=== PATIENT | female | born 1970 | race Caucasian/White ===

== ENCOUNTER 2021-09-23 08:14 | Day surgery (SDC) | payer OTHER ==
[~2021-09-23] VITALS: Ht 172.7 cm; Wt 97.5 kg
[~2021-09-23 08:14] MED LIST: ALBU90OI; MOME220I INH; ZYRTEC10 M2 PO
--- NOTE | 2021-09-23 09:15 | NUR ---
09/23/21 0915 Prabha Torres PATIENT SIGNED REFUSAL FOR HCG. STATES THERE IS NO CHANCE SHE COULD BE
== END 2021-09-23 10:24 | disposition home or self-care (01) ==
LOC: ORSCSDS 08:14
PROVIDERS: Student in an Organized Health Care Education/Training Program
PROC: 0DBL8ZX Excision of Transverse Colon, Via Natural or Artificial Opening Endoscopic, Diagnostic (ICD-10-PCS; principal; 2021-09-23 09:45)
DX: Z12.11 Encounter for screening for malignant neoplasm of colon (principal); D12.3 Benign neoplasm of transverse colon; K57.30 Diverticulosis of large intestine without perforation or abscess without bleeding; K64.8 Other hemorrhoids; F17.210 Nicotine dependence, cigarettes, uncomplicated; J45.909 Unspecified asthma, uncomplicated; Z79.899 Other long term (current) drug therapy
CPT/HCPCS: 88305; J2704; J7120

== ENCOUNTER 2022-02-08 11:42 | Emergency (ER) | payer OTHER ==
[~2022-02-08] VITALS: Ht 172.7 cm; Wt 99.8 kg
== END 2022-02-08 12:42 | disposition home or self-care (01) ==
LOC: ER 11:42
DX: J06.9 Acute upper respiratory infection, unspecified (principal); Z20.822 Contact with and (suspected) exposure to COVID-19; Z87.891 Personal history of nicotine dependence
CPT/HCPCS: 71046; 99283-25

== ENCOUNTER 2023-01-22 14:42 | Inpatient (IN) | payer OTHER ==
[~2023-01-22] VITALS: Ht 170.2 cm; Wt 114.4 kg
--- NOTE | 2023-01-22 17:37 | NUR ---
PT ARRIVED TO [facility] AT APROX 1500. PT ALERT AND ORIENTED X 4, C/O SHARP ULQ ABD PAIN. SEE DOCUMENTED VS AND ASSESSMENT. PT TO SURGERY AT 1721.
--- NOTE | 2023-01-22 18:15 | NUR ---
01/22/23 181 Rosa Vazquez HCG TEST DONE AND NEGATIVE PER DR. LORA
--- NOTE | 2023-01-22 22:45 | NUR ---
*LATE ENTRY* PT ARRIVED FROM PACU ROUGHLY 2019 TO PCU 7 FOR EX LAP. SLIDE TRANSFER TO BED. PT LETHARGIC & DROWSY, WAS MEDICATED FOR PAIN IN PACU. MIDLINE ABD LESA DRESSING & THAI DRAIN INTACT. WILL MONITOR.
--- NOTE | 2023-01-22 22:47 | NUR ---
CRITICAL VALUE *LATE ENTRY* ROUGHLY 2114 LA @4.8 POST OP, INCREASED FROM 2.[address] EAR[address] INFORMED [address] HILL & HE INCREASED LR TO 200ML/HR & ADDED BOLUS. VSS. WILL MONITOR
[2023-01-23 04:02] LABS: Hematocrit 42.7 % (33.0-51.0); Hemoglobin 14.7 g/dL (11.5-16.0); Mean Corpuscular HGB 31.6 pg (26.0-34.0); Mean Corpuscular HGB Conc 34.4 g/dL (31.5-36.5); Mean Corpuscular Volume 92 fL (80-100); Mean Platelet Volume 10.7 fL (9.1-12.4); Platelet Count 184 K/mm3 (150-400); RDW Coefficient Variation 12.9 % (11.7-14.2); RDW Standard Deviation 43.4 fL (35.1-46.3); Red Blood Cell Count 4.65 M/mm3 (3.80-5.20); White Blood Cell Count 19.26 K/mm3 (4.00-11.30)
[2023-01-23 04:45] LABS: Albumin/Globulin Ratio 0.9 (0.8-1.8); Bilirubin, Total 2.3 mg/dL (0.1-1.0); Bun/Creatinine Ratio 24.8 (12.0-20.0); Calcium, Blood 8.9 mg/dL (8.5-10.1); Creatinine, Blood 0.61 mg/dL (0.40-1.00); Globulin, Blood 3.4 g/dL (2.2-4.0); Potassium, Blood 4.5 mmol/L (3.5-5.5); Total Protein, Blood 6.4 g/dL (6.4-8.2)
--- NOTE | 2023-01-23 04:53 | NUR ---
SHIFT SUMMARY AOX4, ONCE SEDATION FROM SURGERY WORN OFF. POD 1- EX ABD LAP. MIDLINE LESA DRESSING C/D/I. THAI DRAIN c 50ML BRIGHT RED DRAINAGE. NGT SET TO LIS, SCANT AMOUNT DRAINAGE IN TUBE, NONE IN CANISTER. NPO. PT REPORTED 9/10 ABD PAIN 1X AFTER TURNING & CHANGING, MEDICATED c 1MG DILAUDID & PAIN LEVEL DECREASED TO 5/10. ABD BINDER IN PLACE. PT HAD SM SOFT BROWN INCONT BM. PT VOIDED IN BEDPAN. VSS. CALL LIGHT IN REACH.
[2023-01-23 04:57] LABS: BAND PERCENT MAN 22 % (0-8); BASOPHILS PERCENT MAN 0 % (0-2); EOSINOPHILS PERCENT MAN 0 % (0-6); LYMPHOCYTES ABSOLUTE MAN 0.57 K/mm3 (0.84-5.20); LYMPHOCYTES PERCENT MAN 3 % (21-46); MONOCYTES ABSOLUTE MAN 0.57 K/mm3 (0.16-1.47); MONOCYTES PERCENT MAN 3 % (4-13); SEG NEUTROPHILS PERCENT MAN 72 % (41-73); TOTAL CELLS COUNTED 100
--- NOTE | 2023-01-23 09:56 | NUR ---
TRANSFER SUMMARY PATIENT ALERT AND ORIENTED. RESTING IN BED. REPORTED ABD PAIN AND NAUSEA. ONE EPISODE OF VOMITING WITH 10 ML EMESIS. MIDLINE LESA DRESSING TO ABD WITH SCANT SHADOWING AT TOP. THAI DRAIN WITH MODERATE SS OUTPUT. ABD BINDER IN PLACE. NG TUBE TO LIS WITH NO OUTPUT IN CANISTER. ABD SOFT AND TENDER. PATIENT REPORTS PASSING GAS AND 1 BM LAST NIGHT. PROTONIX DRIP RUNNING AND LR AT 200/HR. VSS. REPORT GIVEN TO METAL ROASTER SHILO HERNÁNDEZ. PATIENT TRANSPORTED FROM UNIT AT 0950 IN WHEELCHAIR TO ROOM 227.
--- NOTE | 2023-01-23 10:03 | NUR ---
TRANSFER TO SURGICAL UNIT ARRIVES VIA WC & EASY SBA TO TRANSFER TO BED. NGT TO LIS. SCANT BROWN DRNG. THAI w/ SS FLUID. LESA MIDLINE w/ NO DRNG. ABD BINDER. STATES NAUSEA COMES & GOES, BUT IS NOT CONSTANT. IVF, PROTONIX, & ABX WILL BE RESTARTED.
--- NOTE | 2023-01-23 19:24 | NUR ---
SHIFT SUMMARY PT HAS DONE WELL SINCE TX TO SURGICAL UNIT. UP TO BSC TO VOID, VERY DARK URINE. THAI & NGT w/ MIN OUTPUT. REPORTS NAUSEA HAS RESOLVED. DECLINES PAIN MEDS THIS AFTERNOON; STATES PAIN IS TOLERABLE.
--- NOTE | 2023-01-24 07:37 | NUR ---
SHIFT SUMMARY AOX4. POD 2-EX LAP c CAROL PATCH. ABD MOD DISTENDED. REPORTS ABD PAIN 5/10 & DENIES ANY PAIN MEDS, STATES PAIN LEVEL TOLERABLE. PT DID GET NAUSEATED WHEN UP TO BSC & STARTED DRY HEAVING/GAGGING, MEDICATED 1x c REGLAN & NO FURTHER NAUSEA REPORTED. MIDLINE LESA DRESSING C/D/I. THAI DRAIN 30ML BRIGHT RED DRAINAGE. NGT TO LIS c 250ML BROWN DRAINAGE IN CANISTER. SBY ASSIST TO BSC. CALL LIGHT IN REACH.
--- NOTE | 2023-01-24 18:24 | NUR ---
SHIFT SUMMARY PT HAS DONE WONDERFUL TODAY. WAS UP TO CHAIR, HAD NGT REMOVED, TOLERATING ICE CHIPS & SIPS OF CLEARS w/ NO N/V. STATES PAIN IS MIMINAL. GRADUATED FROM BSC TO AMBULATING TO BATHROOM. FEELS MUCH IMPROVED.
--- NOTE | 2023-01-25 05:24 | NUR ---
LEGAL EDITOR SUMMARY PT TOLERATING SMALL AMOUNTS OF CLEAR LIQUIDS. DENIES NAUSEA THROUGH THE NIGHT. PT DID START COMPLAINING OF ABD PAIN AT START OF SHIFT, RECIEVED ORDER FROM DR HILL FOR IV DILAUDID, PAIN VERY WELL MANAGED WITH 1MG. 30 ML OF PINK OUTPUT TO THAI DRAIN. NO CHANGES TO MIDLINE LESA. VSS, WILL CONTINUE TO MONITOR.
[2023-01-25 05:42] LABS: BASOPHILS ABSOLUTE AUTO 0.03 K/mm3 (0.00-0.23); BASOPHILS PERCENT AUTO 0 % (0-2); EOSINOPHILS ABSOLUTE AUTO 0.13 K/mm3 (0.00-0.68); EOSINOPHILS PERCENT AUTO 1 % (0-6); Hematocrit 38.1 % (33.0-51.0); Hemoglobin 12.5 g/dL (11.5-16.0); IMMATURE GRAN ABSOLUTE AUTO 0.05 K/mm3 (0.00-0.10); IMMATURE GRAN PERCENT AUTO 1 % (0-1); LYMPHOCYTES ABSOLUTE AUTO 1.87 K/mm3 (0.84-5.20); LYMPHOCYTES PERCENT AUTO 20 % (21-46); MONOCYTES ABSOLUTE AUTO 0.51 K/mm3 (0.16-1.47); MONOCYTES PERCENT AUTO 6 % (4-13); Mean Corpuscular HGB 31.4 pg (26.0-34.0); Mean Corpuscular HGB Conc 32.8 g/dL (31.5-36.5); Mean Corpuscular Volume 96 fL (80-100); NEUTROPHILS ABSOLUTE AUTO 6.73 K/mm3 (1.96-9.15); NEUTROPHILS PERCENT AUTO 72 % (41-73); Platelet Count 174 K/mm3 (150-400); RDW Coefficient Variation 13.2 % (11.7-14.2); RDW Standard Deviation 46.5 fL (35.1-46.3); Red Blood Cell Count 3.98 M/mm3 (3.80-5.20); White Blood Cell Count 9.32 K/mm3 (4.00-11.30)
[2023-01-25 06:00] LABS: Albumin, Blood 2.5 g/dL (3.4-5.0); Albumin/Globulin Ratio 0.7 (0.8-1.8); Bilirubin, Total 1.2 mg/dL (0.1-1.0); Bun/Creatinine Ratio 19.2 (12.0-20.0); Calcium, Blood 8.6 mg/dL (8.5-10.1); Creatinine, Blood 0.68 mg/dL (0.40-1.00); Globulin, Blood 3.8 g/dL (2.2-4.0); Potassium, Blood 3.7 mmol/L (3.5-5.5); Total Protein, Blood 6.3 g/dL (6.4-8.2)
--- NOTE | 2023-01-25 11:18 | NUR ---
Pt. is awake and welcomes my visit as she is sittng up in a recliner. Pts. mother is present. Pt. is pleasant, but displays evidence of discomfort. Facilitated a life review, and established rapport. Nurses came in to administer meds, and Pt. was also visited my [facility] the [facility] therapy dog. Prayed with Pt. Pt. and mother verbalized gratitude for the spiritual care visit.
--- NOTE | 2023-01-25 14:00 | NUR ---
SOB/SLIGHT WHEEZE REPORTS SLIGHT SOB & SLIGH WHEEZE AFTER LAST AMBULATION. REQUESTS HOME INHALER BE ORDERED. WILL SPEAK w/
--- NOTE | 2023-01-25 15:02 | NUR ---
PARTIAL SHIFT SUMMARY PT HAS DONE GREAT TODAY, ALTHOUGH NOT PASSING GAS YET & C/O GAS PAINS. AMBULATING IN HALLWAYS & UP TO CHAIR. C/O SLIGHT WHEEZE; SEE NOTE.
--- NOTE | 2023-01-25 16:33 | NUR ---
ASSUMED CARE OF PT AT APROX 1530. PT LYING IN BED, A/O X'S 4. DENIES PAIN AT THIS TIME, STATES SHE IS JUST SLEEPY. PT PASSING FLATUS, WILL ADVANCE DIET PER MD ORDER.
--- NOTE | 2023-01-26 05:02 | NUR ---
FIELD CONTACT PERSON SUMMARY PT AAOX4 AND PLEASANT. TOLERATING A REGULAR DIET FOR DINNER AND SOME SNACKS TONIGHT. MEDICATED FOR PAIN X1 WITH IV DILAUDID BEFORE START OF SHIFT, MEDICATED X1 WITH ROXICODONE 10 MG LATER THIS MORNING. MINIMAL OUTPUT TO THAI DRAIN. VSS, WILL CONTINUE TO MONITOR.
[2023-01-26] MEDS ORDERED: OMEP20ER PO (13:10)
[2023-01-26] MEDS ORDERED: OXYC10TA19 PO (13:10)
--- NOTE | 2023-01-26 20:38 | NUR ---
DISCHARGE SUMMARY S/P CAROL PATCH, A/OX4, VSS, TOLERATING PO, VOIDING WELL. IV ACCESS REMOVED PRIOR TO DISCHARGE, NO IV DEVICES IN PLACE AT TIME OF DEPARTURE. DISCUSSED DISCHARGE INFORMATION WITH THE PATIENT INCLUDING HOME CARE, S/SX TO LOOK OUT FOR, EDUCATION REGARDING HER PROCEDURE, MEDICATION CHANGES, AND FOLLOW UP APPOINTMENTS. ANSWERED ALL QUESTIONS TO PATIENTS SATISFACTION. THAI DRAIN REMOVED BY SURGEON JUST PRIOR TO DC, PROVIDED PT WITH AN EXTRA DRESSING WITH INSTRUCTIONS TO REPLACE IF IT GETS SOILED OR REINFORCE IF NEEDED. PT ESCORTED OUT VIA WC TO PRIVATE AUTO TO GO HOME.
== END 2023-01-26 13:45 | disposition home or self-care (01) | DRG 328 ==
LOC: ER 14:42 → SURS 15:50 → PCU 15:50 → SURS 15:50 → PCU 16:02 → SURS 19:01 → PCU 21:54 → SURS 01-23 09:57
PROVIDERS: ADMIT Surgery
PROC: 0DU707Z Supplement Stomach, Pylorus with Autologous Tissue Substitute, Open Approach (ICD-10-PCS; 2023-01-22)
PROC: 0DQ60ZZ Repair Stomach, Open Approach (ICD-10-PCS; principal; 2023-01-22 17:30)
DX: K25.5 Chronic or unspecified gastric ulcer with perforation (principal); K66.8 Other specified disorders of peritoneum; J45.909 Unspecified asthma, uncomplicated; Z79.51 Long term (current) use of inhaled steroids; Z87.891 Personal history of nicotine dependence; Z98.890 Other specified postprocedural states
CPT/HCPCS: 36415; 80053; 83605; 85025; 87040; 93005; 93010; 94760; 96374; 96374-59; 96375; 99285-25; A9270; C9113; G0378; J0295; J0330; J1100; J1170; J1650; J2270; J2405; J2543; J2704; J2765; J2795; J3010; J7120

== ENCOUNTER → 2023-01-22 | Outpatient (CLI) | payer OTHER ==
[2023-01-22 11:58] LABS: BASOPHILS ABSOLUTE AUTO 0.03 K/mm3 (0.00-0.23); BASOPHILS PERCENT AUTO 0 % (0-2); EOSINOPHILS ABSOLUTE AUTO 0.02 K/mm3 (0.00-0.68); EOSINOPHILS PERCENT AUTO 0 % (0-6); Hemoglobin 17.6 g/dL (11.5-16.0); IMMATURE GRAN ABSOLUTE AUTO 0.04 K/mm3 (0.00-0.10); IMMATURE GRAN PERCENT AUTO 0 % (0-1); LYMPHOCYTES ABSOLUTE AUTO 0.65 K/mm3 (0.84-5.20); LYMPHOCYTES PERCENT AUTO 5 % (21-46); MONOCYTES ABSOLUTE AUTO 0.31 K/mm3 (0.16-1.47); MONOCYTES PERCENT AUTO 3 % (4-13); Mean Corpuscular HGB 31.9 pg (26.0-34.0); Mean Corpuscular HGB Conc 33.8 g/dL (31.5-36.5); Mean Corpuscular Volume 94 fL (80-100); Mean Platelet Volume 10.1 fL (9.1-12.4); NEUTROPHILS ABSOLUTE AUTO 11.18 K/mm3 (1.96-9.15); NEUTROPHILS PERCENT AUTO 92 % (41-73); Platelet Count 212 K/mm3 (150-400); RDW Coefficient Variation 13.1 % (11.7-14.2); RDW Standard Deviation 45.3 fL (35.1-46.3); Red Blood Cell Count 5.51 M/mm3 (3.80-5.20); White Blood Cell Count 12.23 K/mm3 (4.00-11.30)
[2023-01-22 12:08] LABS: Albumin, Blood 4.2 g/dL (3.4-5.0); Albumin/Globulin Ratio 1.1 (0.8-1.8); Bilirubin, Total 2.1 mg/dL (0.1-1.0); Calcium, Blood 9.4 mg/dL (8.5-10.1); Creatinine, Blood 1.07 mg/dL (0.40-1.00); Globulin, Blood 3.8 g/dL (2.2-4.0); Potassium, Blood 4.5 mmol/L (3.5-5.5)
== END | disposition home or self-care (01) ==
LOC: LAB SHORT 11:51
PROVIDERS: Emergency Medicine
DX: R10.9 Unspecified abdominal pain (principal)
CPT/HCPCS: 80053; 83690; 85025

== ENCOUNTER 2023-01-31 19:00 | Emergency (ER) | payer OTHER ==
[~2023-01-31] VITALS: Ht 157.5 cm; Wt 106.6 kg
[~2023-01-31 19:00] MED LIST changes: +OMEP20ER PO; +OXYC10TA19 PO
== END 2023-02-01 00:02 | disposition home or self-care (01) ==
LOC: ER 19:00
DX: Z48.815 Encounter for surgical aftercare following surgery on the digestive system (principal); Z79.899 Other long term (current) drug therapy
CPT/HCPCS: 99282

== ENCOUNTER 2023-03-28 09:41 | Day surgery (SDC) | payer OTHER ==
[~2023-03-28] VITALS: Ht 172.7 cm; Wt 106.1 kg
[2023-03-28] MEDS ORDERED: ASMANEX220 M14 (10:33)
[2023-03-28] MEDS ORDERED: ZYRTEC10 M2 (10:33)
--- NOTE | 2023-03-28 10:51 | NUR ---
03/28/23 1051 Eda Garcia ASSESSMENTS AND CARE PLAN AND IV CHARTED BY SIGRID GUNDERSON
[2023-03-28 11:45] VITALS: BP 115/84
== END 2023-03-28 11:40 | disposition home or self-care (01) ==
LOC: ORSCSDS 09:41
PROVIDERS: Surgery
PROC: 0DB68ZX Excision of Stomach, Via Natural or Artificial Opening Endoscopic, Diagnostic (ICD-10-PCS; principal; 2023-03-28 11:00)
PROC: 0DB58ZX Excision of Esophagus, Via Natural or Artificial Opening Endoscopic, Diagnostic (ICD-10-PCS; principal; 2023-03-28 11:00)
DX: Z87.11 Personal history of peptic ulcer disease (principal); K20.90 Esophagitis, unspecified without bleeding; J45.909 Unspecified asthma, uncomplicated; R73.9 Hyperglycemia, unspecified; Z79.899 Other long term (current) drug therapy
CPT/HCPCS: 88305; 88342; J0330; J0461; J2001; J2405; J2704; J7120; Q9968

== ENCOUNTER 2023-07-17 23:13 | Observation (INO) | payer OTHER ==
[~2023-07-17] VITALS: Ht 363.2 cm; Wt 107.0 kg
[~2023-07-17 23:13] MED LIST changes: -ALBU90OI; +ALBU90OI INH; +ASMANEX220 M14
[2023-07-18 00:07] LABS: BASOPHILS ABSOLUTE AUTO 0.04 K/mm3 (0.00-0.23); BASOPHILS PERCENT AUTO 1 % (0-2); EOSINOPHILS ABSOLUTE AUTO 0.37 K/mm3 (0.00-0.68); EOSINOPHILS PERCENT AUTO 5 % (0-6); Hematocrit 43.1 % (33.0-51.0); Hemoglobin 14.3 g/dL (11.5-16.0); IMMATURE GRAN ABSOLUTE AUTO 0.04 K/mm3 (0.00-0.10); IMMATURE GRAN PERCENT AUTO 1 % (0-1); LYMPHOCYTES ABSOLUTE AUTO 2.15 K/mm3 (0.84-5.20); LYMPHOCYTES PERCENT AUTO 30 % (21-46); MONOCYTES ABSOLUTE AUTO 0.48 K/mm3 (0.16-1.47); MONOCYTES PERCENT AUTO 7 % (4-13); Mean Corpuscular HGB 31.2 pg (26.0-34.0); Mean Corpuscular HGB Conc 33.2 g/dL (31.5-36.5); Mean Corpuscular Volume 94 fL (80-100); Mean Platelet Volume 10.5 fL (9.1-12.4); NEUTROPHILS ABSOLUTE AUTO 4.21 K/mm3 (1.96-9.15); NEUTROPHILS PERCENT AUTO 58 % (41-73); Platelet Count 198 K/mm3 (150-400); RDW Coefficient Variation 12.8 % (11.7-14.2); RDW Standard Deviation 43.6 fL (35.1-46.3); Red Blood Cell Count 4.58 M/mm3 (3.80-5.20); White Blood Cell Count 7.29 K/mm3 (4.00-11.30)
[2023-07-18 00:28] LABS: Albumin, Blood 3.7 g/dL (3.4-5.0); Bun/Creatinine Ratio 20.2 (12.0-20.0); Calcium, Blood 9.4 mg/dL (8.5-10.1); Creatinine, Blood 0.74 mg/dL (0.40-1.00); Globulin, Blood 3.7 g/dL (2.2-4.0); Potassium, Blood 4.1 mmol/L (3.5-5.5); Total Protein, Blood 7.4 g/dL (6.4-8.2)
[2023-07-18 00:55] LABS: Source, Urine Clean Catch
[2023-07-18 01:01] LABS: Appearance, Urine Clear (Clear); Bilirubin, Urine Neg (Neg); Blood, Urine Neg (Neg); Color, Urine Yellow (P-Yellow); Glucose Qualitative, Urine Neg (Neg); Ketones, Urine Neg (Neg); Leukocyte Esterase, Urine Neg (Neg); Nitrite, Urine Neg (Neg); Protein, Urine Neg (Neg); Specific Gravity, Urine 1.015 (1.003-1.022); Urobilinogen, Urine NORM (Normal)
[2023-07-18 04:20] VITALS: BP 115/73
--- NOTE | 2023-07-18 05:44 | NUR ---
Shift Summary Pt arrived to our unit from the ED with Dx of Rectal Sheath Hematoma. In the ER she had 8/10 abd pain, was given morphine, and 3 hours later here she states 0/10 pain. She is AOx4, indepenent in the room. Her Abd CT shows possible bleeding. Per Dr. Garcia, she can be regular diet unless she has blood in her stool then she is to be NPO. I will ask her about recent stools when she wakes up.
[2023-07-18 06:27] LABS: Hematocrit 39.7 % (33.0-51.0); Hemoglobin 13.3 g/dL (11.5-16.0)
[2023-07-18 07:33] VITALS: BP 129/77
[2023-07-18] MEDS ORDERED: ACET325 PO (11:25)
[2023-07-18] MEDS ORDERED: TRAM50 PO (11:52)
--- NOTE | 2023-07-18 12:56 | NUR ---
PT DISCHRGED THE PT VERBALIZED UNDERSTANDING OF THE DC INSTRUCTIONS, PT GIVEN A PRESCRIPTION FOR TRAMADOL. SCRIPT ALSO FAXED TO THE [facility] SHE REQUESTED. A FOLLOW UP APPOINTMENT WAS ESTABLISHED WITH HER PROVIDER PRIOR TO DC. PT TRANSFERED VIA WHEELCHAIR TO THE FRONT ACCOMPANIED BY THIS RN
== END 2023-07-18 12:35 | disposition home or self-care (01) ==
LOC: ER 23:13 → MEDS 23:14 → ENPENDDIS 07-18 11:43 → MEDS 07-18 12:35
PROVIDERS: Student in an Organized Health Care Education/Training Program; ADMIT Internal Medicine
DX: S30.1XXA Contusion of abdominal wall, initial encounter (principal); R06.02 Shortness of breath; R10.12 Left upper quadrant pain; X58.XXXA Exposure to other specified factors, initial encounter
CPT/HCPCS: 36415; 74177; 80053; 81003; 83690; 84484; 85014; 85018; 85025; 93005; 93010; 94640; 94664; 94760; 96374; 99285-25; A9270; G0378; J2270; J7030; Q9967

== ENCOUNTER 2023-10-22 14:25 | Emergency (ER) | payer OTHER ==
[~2023-10-22] VITALS: Ht 172.7 cm; Wt 99.8 kg
[~2023-10-22 14:25] MED LIST changes: +ACET325 PO; +TRAM50 PO
[2023-10-22 14:34] VITALS: BP 137/77
[2023-10-22] MEDS ORDERED: OMEP20ER (14:38)
[2023-10-22 16:31] LABS: Influenza A, PCR NEGATIVE (NEGATIVE); Influenza B, PCR NEGATIVE (NEGATIVE); Resp Syncytial Virus, PCR NEGATIVE (NEGATIVE); SARS-Cov-2 (COVID-19) PCR, MMC NEGATIVE (NEGATIVE)
== END 2023-10-22 15:51 | disposition home or self-care (01) ==
LOC: ER 14:25
PROVIDERS: Student in an Organized Health Care Education/Training Program
DX: J98.8 Other specified respiratory disorders (principal); B97.89 Other viral agents as the cause of diseases classified elsewhere; Z20.822 Contact with and (suspected) exposure to COVID-19; Z79.899 Other long term (current) drug therapy; Z88.8 Allergy status to other drugs, medicaments and biological substances
CPT/HCPCS: 0241U; 96372; 99283-25; A9270; J1885

== ENCOUNTER 2023-11-27 12:51 | Emergency (ER) | payer OTHER ==
[~2023-11-27] VITALS: Ht 177.8 cm; Wt 97.1 kg
[~2023-11-27 12:51] MED LIST changes: +OMEP20ER
[2023-11-27 14:18] LABS: Albumin, Blood 3.6 g/dL (3.4-5.0); Albumin/Globulin Ratio 0.9 (0.8-1.8); Bun/Creatinine Ratio 17.6 (12.0-20.0); Calcium, Blood 9.1 mg/dL (8.5-10.1); Creatinine, Blood 0.74 mg/dL (0.40-1.00); Globulin, Blood 4.2 g/dL (2.2-4.0); Potassium, Blood 3.5 mmol/L (3.5-5.5); Total Protein, Blood 7.8 g/dL (6.4-8.2)
[2023-11-27 15:07] LABS: Source, Urine Clean Catch
[2023-11-27 15:18] LABS: Appearance, Urine Clear (Clear); Bilirubin, Urine Neg (Neg); Blood, Urine Neg (Neg); Color, Urine Yellow (P-Yellow); Glucose Qualitative, Urine Neg (Neg); Ketones, Urine Neg (Neg); Leukocyte Esterase, Urine 1+ (Neg); Nitrite, Urine Neg (Neg); Protein, Urine Neg (Neg); Specific Gravity, Urine 1.015 (1.003-1.022); Urobilinogen, Urine 1+ (Normal)
[2023-11-27 15:27] LABS: Bacteria Few /hpf; Red Blood Cells, Urine 0-2 /hpf (0-2); Squamous Epithelial Cells Mod /hpf (Few)
[2023-11-27 15:28] LABS: Mucus Light (0-Heavy)
[2023-11-27 15:52] LABS: BASOPHILS ABSOLUTE AUTO 0.03 K/mm3 (0.00-0.23); BASOPHILS PERCENT AUTO 1 % (0-2); EOSINOPHILS ABSOLUTE AUTO 0.12 K/mm3 (0.00-0.68); EOSINOPHILS PERCENT AUTO 2 % (0-6); Hematocrit 47.5 % (33.0-51.0); Hemoglobin 15.5 g/dL (11.5-16.0); IMMATURE GRAN ABSOLUTE AUTO 0.02 K/mm3 (0.00-0.10); IMMATURE GRAN PERCENT AUTO 0 % (0-1); LYMPHOCYTES ABSOLUTE AUTO 1.51 K/mm3 (0.84-5.20); LYMPHOCYTES PERCENT AUTO 28 % (21-46); MONOCYTES ABSOLUTE AUTO 0.36 K/mm3 (0.16-1.47); MONOCYTES PERCENT AUTO 7 % (4-13); Mean Corpuscular HGB 31.1 pg (26.0-34.0); Mean Corpuscular HGB Conc 32.6 g/dL (31.5-36.5); Mean Corpuscular Volume 95 fL (80-100); Mean Platelet Volume 10.3 fL (9.1-12.4); NEUTROPHILS ABSOLUTE AUTO 3.34 K/mm3 (1.96-9.15); NEUTROPHILS PERCENT AUTO 62 % (41-73); Platelet Count 169 K/mm3 (150-400); RDW Standard Deviation 45.5 fL (35.1-46.3); Red Blood Cell Count 4.98 M/mm3 (3.80-5.20); White Blood Cell Count 5.38 K/mm3 (4.00-11.30)
[2023-11-27 16:45] VITALS: BP 133/79
== END 2023-11-27 17:05 | disposition home or self-care (01) ==
LOC: ER 12:51
PROVIDERS: Physician Assistant; Student in an Organized Health Care Education/Training Program
DX: R10.12 Left upper quadrant pain (principal); Z87.19 Personal history of other diseases of the digestive system; Z91.048 Other nonmedicinal substance allergy status; Z79.899 Other long term (current) drug therapy
CPT/HCPCS: 74177; 80053; 81001; 83690; 85025; 87086; 96374-59; 96375; 99285-25; A9270; J1885; J2405; Q9967

== ENCOUNTER 2024-01-17 21:20 | Emergency (ER) | payer OTHER ==
[~2024-01-17] VITALS: Ht 172.7 cm; Wt 99.3 kg
[2024-01-17 21:37] VITALS: BP 131/82
== END 2024-01-17 22:35 | disposition home or self-care (01) ==
LOC: ER 21:20
DX: S00.12XA Contusion of left eyelid and periocular area, initial encounter (principal); S00.83XA Contusion of other part of head, initial encounter; Z91.048 Other nonmedicinal substance allergy status; W10.1XXA Fall (on)(from) sidewalk curb, initial encounter; Y92.480 Sidewalk as the place of occurrence of the external cause; Y93.01 Activity, walking, marching and hiking
CPT/HCPCS: 99283

== ENCOUNTER 2024-06-06 11:08 | Emergency (ER) | payer OTHER ==
[~2024-06-06] VITALS: Ht 172.7 cm; Wt 95.2 kg
[~2024-06-06 11:08] MED LIST changes: +AZIT250 PO
[2024-06-06] MEDS ORDERED: Acetaminophen 500 MG Tab PO ONE (13:10)
[2024-06-06 14:21] VITALS: BP 138/78
== END 2024-06-06 14:22 ==
LOC: ER 11:08
DX: S01.01XA Laceration without foreign body of scalp, initial encounter (principal); M25.531 Pain in right wrist; M25.521 Pain in right elbow; W18.30XA Fall on same level, unspecified, initial encounter; Z91.048 Other nonmedicinal substance allergy status
CPT/HCPCS: 12001; 73090; 99283-25; A9270

== ENCOUNTER 2024-11-04 22:40 | Emergency (ER) | payer OTHER ==
[~2024-11-04] VITALS: Ht 172.7 cm; Wt 95.2 kg
[2024-11-04 22:50] VITALS: BP 123/72
[2024-11-04] MEDS ORDERED: Ipratropium/Albuterol SulF 2.5-0.5MG/3 ML Amp INH ONE (23:10)
[2024-11-04] MEDS ORDERED: Albuterol 2.5 MG/3 ML VIAL INH SCH (23:45)
[2024-11-05] MEDS ORDERED: RX Prepack Albuterol 1 PREPACK/6.7 GM INH UD ONE (00:45)
== END 2024-11-05 00:53 | disposition home or self-care (01) ==
LOC: ER 22:40
DX: J45.909 Unspecified asthma, uncomplicated (principal); Z91.09 Other allergy status, other than to drugs and biological substances
CPT/HCPCS: 94640; 94644; 94664; 99285-25; A9270